=== PATIENT | female | born 1985 | race Caucasian/White ===

== ENCOUNTER 2022-05-04 22:11 | Emergency (ER) | payer SELFPAY ==
--- NOTE | 2022-05-04 22:14 | ERPHSYRPT ---
- History of Present Illness Time Seen by Provider: 05/04/22 22:14 Source: patient Exam Limitations: no limitations Physician History: This is a 36-year-old white female who injured her left foot and ankle yesterday approximately 1 PM when she slipped and rolled her left foot and ankle while getting out of her jeep. She slipped on loose gravel. Patient has been weightbearing but there is increased swelling and pain today. Method of Injury: twisted Occurred: yesterday Quality: constant, aching, throbbing Severity of Pain-Max: moderate Severity of Pain-Current: moderate Modifying Factors: Improves With: movement Associated Symptoms: other (Hurts to bear weight but can do so.) Allergies/Adverse Reactions: cetirizine [From Zyrtec] Adverse Reaction (Intermediate, Verified 05/04/22 22:30) Hives diphenhydramine [From Benadryl] Adverse Reaction (Intermediate, Verified 05/04/22 22:30) Hives loratadine [From Claritin] Adverse Reaction (Intermediate, Verified 05/04/22 22:30) Hives Home Medications: No Reportable Medications [No Reported Medications] 05/04/22 [History] Travel Risk - International Travel Have you traveled outside of the country in past 3 weeks: No - Coronavirus Screening Are you exhibiting any of the following symptoms?: No Close contact with a COVID-19 positive Pt in past 14-21 Days: No - Review of Systems Constitutional: No Symptoms Eyes: No Symptoms Ears, Nose, & Throat: No Symptoms Respiratory: No Symptoms Cardiac: No Symptoms Abdominal/Gastrointestinal: No Symptoms Genitourinary Symptoms: No Symptoms Musculoskeletal: Injury (Left foot and ankle) Skin: No Symptoms Neurological: No Symptoms Psychological: No Symptoms Endocrine: No Symptoms Hematologic/Lymphatic: No Symptoms Immunological/Allergic: No Symptoms All Other Systems: Reviewed and Negative - Past Medical History Pertinent Past Medical History: No - Past Surgical History Past Surgical History: No - Nursing Vital Signs Nursing Vital Signs: Initial Vital Signs Temperature 96.5 F 05/04/22 22:21 Pulse Rate 70 05/04/22 22:21 Respiratory Rate 18 05/04/22 22:21 Blood Pressure 128/59 05/04/22 22:21 O2 Sat by Pulse Oximetry 98 05/04/22 22:21 Pain Scale Pain Intensity 4 - Physical Exam General Appearance: no apparent distress, alert, anxiety, obese Eyes, Ears, Nose, Throat Exam: normal ENT inspection, moist mucous membranes Neck Exam: normal inspection, non-tender, supple, full range of motion Cardiovascular/Respiratory Exam: chest non-tender, no respiratory distress Gastrointestinal/Abdominal Exam: non-tender Back Exam: normal inspection, normal range of motion, No CVA tenderness, No vertebral tenderness Hips Exam: bilateral: non-tender, normal inspection, normal range of motion, no evidence of injury Legs Exam: bilateral leg: non-tender, normal inspection, normal range of motion, no evidence of injury Knees Exam: bilateral knee: non-tender, normal inspection, normal range of motion, no evidence of injury Ankle Exam: right ankle: non-tender, normal inspection, left ankle: soft tissue tenderness, swelling, bilateral ankle: normal range of motion Foot Exam: right foot: non-tender, normal inspection, no evidence of injury, left foot: soft tissue tenderness, swelling, bilateral foot: normal range of motion Neuro/Tendon Exam: normal sensation, normal motor functions, normal tendon functions, responds to pain, no evidence tendon injury Mental Status Exam: alert, oriented x 3, cooperative Skin Exam: normal color, warm, dry SpO2 Interpretation: normal O2 Delivery: Room Air - Course Nursing assessment & vital signs reviewed: Yes Ordered Tests: Medication Summary Discontinued Medications Generic Name Dose Route Start Last Admin Trade Name Clarissa PRN Reason Stop Dose Admin Hydrocodone Bitart/Acetaminophen 1 tab 05/04/22 22:45 05/04/22 22:52 Hydrocodone/Apap 5/325 Mg Tablet PO 05/04/22 22:46 1 tab STAT ONE Administration Hydrocodone Bitart/Acetaminophen 2 tab 05/04/22 22:46 05/04/22 22:52 Hydrocodone/Apap 5/325 Mg Tablet PO 05/04/22 22:47 2 tab SENT HOME W/ PATIENT ONE Administration Hydrocodone Bitart/Acetaminophen Confirm 05/04/22 22:50 Hydrocodone/Apap 5/325 Mg Tablet Administered 05/04/22 22:51 Dose 3 tab .ROUTE .STK-MED ONE Ibuprofen 600 mg 05/04/22 22:45 05/04/22 22:51 Ibuprofen 600 Mg Tablet PO 05/04/22 22:46 600 mg STAT ONE Administration Ibuprofen Confirm 05/04/22 22:50 Ibuprofen 600 Mg Tablet Administered 05/04/22 22:51 Dose 600 mg .ROUTE .STK-MED ONE - Progress Progress: unchanged, pain not gone completely Progress Note: 05/04/22 22:51 X-ray left ankle reveals no evidence of any acute fracture or dislocation. X- ray left foot reveals no evidence of any acute fracture or dislocation. Counseled pt/family regarding: diagnosis, need for follow-up, rad results - Departure Departure Disposition: Home Clinical Impression: Left ankle sprain, Sprain of left foot Condition: Stable Critical Care Time: No Referrals: DOCTOR,NO FAMILY [Primary Care Provider] - Follow up/PCP as directed Instructions: Ankle Sprain (DC) Additional Instructions: Ice pack to areas of tenderness 3 times a day for the next 48 hours. Use ibuprofen 600 mg orally with food 3 times a day for the next 5 days. Follow-up with [facility] orthopedic clinic for persistent symptoms. Another option would be to see automatic profile sander operator Dr. Freeman for persistent symptoms. Weightbearing as tolerated.
[2022-05-04 22:23] VITALS: O2SAT 98
[2022-05-04] MEDS ORDERED: NORCO 5/325 MG PO ONE ×2 (22:45→22:46)
[2022-05-04] MEDS ORDERED: MOTRIN 600 MG PO ONE (22:45)
[2022-05-04] MEDS ORDERED: NORCO 5/325 MG ONE (22:50)
[2022-05-04] MEDS ORDERED: MOTRIN 600 MG ONE (22:50)
[2022-05-04 23:19] VITALS: BP 112/75; PULSE 87
--- NOTE | 2022-05-05 08:50 | XRAY ---
Indication: Pain and swelling following injury. Comparison: None 3 view left ankle demonstrates mild medial soft tissue swelling and tiny posterior heel spur. No other bony, articular, or soft tissue abnormalities.
--- NOTE | 2022-05-05 08:51 | XRAY ---
Indication: Pain and swelling following injury. Comparison: None 3 nonweightbearing views left foot demonstrates tiny posterior heel spur. No other bony, articular, or soft tissue abnormalities.
== END 2022-05-04 23:19 | disposition home or self-care (01) ==
LOC: ED 22:11
DX: S93.402A Sprain of unspecified ligament of left ankle, initial encounter (principal); S93.602A Unspecified sprain of left foot, initial encounter; V48.4XXA Person boarding or alighting a car injured in noncollision transport accident, initial encounter; M25.572 Pain in left ankle and joints of left foot
CPT/HCPCS: 73610; 73630; 99284; A9270-GY

== ENCOUNTER 2022-09-11 21:25 | Emergency (ER) | payer MEDICAID ==
--- NOTE | 2022-09-11 22:41 | ERPHSYRPT ---
- History of Present Illness Source: patient Exam Limitations: other (Poor historian) Patient Subjective Stated Complaint: pt states that she has some swelling of face after cleaning out a storage unit, states she became stuffy in her sinuses and then her left side of her face swelled. states "this always happens with my dust allergies". Triage Nursing Assessment: pt is alert and oriented, no SOB no CP. breathing easy, vitals WNL, no pain Physician History: 37 yo wf w L facial edema edema since 1300 today. Pt has mild pain,mild pruritis, and nasal congestion. She denies fever/dental pain/dyspnea/dysphagia. Pt believes that she is having an allergic reaction to dust. Timing/Duration: abrupt onset (13:00 today) Severity: mild ENT Location: facial (L facial) Prearrival Treatment: no prearrival treatment Modifying Factors: Improves With: nothing Associated Symptoms: denies symptoms Allergies/Adverse Reactions: cetirizine [From Zyrtec] Adverse Reaction (Intermediate, Verified 05/04/22 22:30) Hives diphenhydramine [From Benadryl] Adverse Reaction (Intermediate, Verified 05/04/22 22:30) Hives loratadine [From Claritin] Adverse Reaction (Intermediate, Verified 05/04/22 22:30) Hives bupropion [From Wellbutrin] Adverse Reaction (Verified 09/11/22 21:35) Hx Tetanus, Diphtheria Vaccination/Date Given: Yes Hx Influenza Vaccination/Date Given: Yes Hx Pneumococcal Vaccination/Date Given: No Travel Risk - International Travel Have you traveled outside of the country in past 3 weeks: No - Coronavirus Screening Are you exhibiting any of the following symptoms?: No Close contact with a COVID-19 positive Pt in past 14-21 Days: No - Vaccine Status Have you recieved a Covid-19 vaccination: No - Review of Systems Constitutional: No Symptoms Ears, Nose, & Throat: No Symptoms, Nose Congestion Respiratory: No Symptoms Cardiac: No Symptoms Abdominal/Gastrointestinal: No Symptoms Genitourinary Symptoms: No Symptoms Musculoskeletal: No Symptoms Skin: No Symptoms Neurological: No Symptoms Psychological: No Symptoms Endocrine: No Symptoms Hematologic/Lymphatic: No Symptoms Immunological/Allergic: No Symptoms - Past Medical History Pertinent Past Medical History: No Neurological History: No Pertinent History ENT History: No Pertinent History Cardiac History: No Pertinent History Respiratory History: No Pertinent History Endocrine Medical History: Hypoglycemia Musculoskeletal History: No Pertinent History GI Medical History: Gallbladder Disease History: No Pertinent History Psycho-Social History: Depression Female Reproductive Disorders: No Pertinent History - Past Surgical History Past Surgical History: No Neuro Surgical History: No Pertinent History Cardiac: No Pertinent History Respiratory: No Pertinent History Gastrointestinal: Cholecystectomy Genitourinary: No Pertinent History Musculoskeletal: Orthopedic Surgery Female Surgical History: Dilation & Curettage, Section - Social History Smoking Status: Never smoker Exposure to second hand smoke: Yes Drug Use: none Patient Lives Alone: No Significant Family History: no pertinent family hx - Female History Hx Last Menstrual Period: 08/29/22 Hx Now: No - Nursing Vital Signs Nursing Vital Signs: Initial Vital Signs Temperature 97.1 F 09/11/22 21:28 Pain Scale Pain Intensity 0 WNL - Physical Exam General Appearance: no apparent distress (Mild L facial edema and mild TTP) Eye Exam: bilateral eye: normal inspection, PERRL, EOMI Ear Exam: bilateral ear: auricle normal, canal normal, TM normal Nasal Exam: normal inspection Throat Exam: normal, pharynx normal, No dental tenderness Neck Exam: normal inspection, non-tender, supple, full range of motion, trachea midline, No JVD, No limited range of motion Cardiovascular/Respiratory Exam: normal breath sounds, regular rate/rhythm, heart sounds normal Neurologic Exam: alert, oriented x 3, cooperative, 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, normal mood/affect, nml cerebellar function, nml station & gait, sensation nml, No motor deficits, No sensory deficit Skin Exam: normal color, warm, dry, No rash - CT Exams Maxillofacial Bones CT Interpretation: Tele-radiologist Report (Periapical disease involving the L maxillary incisor w possible erosion through the anterior cortex w L facial/pre- maxillary phlegmon) Ordered Tests: Active Orders 24 hr Category Date Time Status SINUSES WITHOUT CONTRAST [CT] Stat Exams 09/11/22 21:53 Taken Medication Summary Discontinued Medications Generic Name Dose Route Start Last Admin Trade Name Freq PRN Reason Stop Dose Admin Ketorolac Tromethamine 15 mg 09/11/22 23:36 09/11/22 23:40 Ketorolac Tromethamine 30 Mg/Ml Inj IM 09/11/22 23:37 15 mg STAT ONE Administration Ketorolac Tromethamine Confirm 09/11/22 23:38 Ketorolac Tromethamine 30 Mg/Ml Inj Administered 09/11/22 23:39 Dose 30 mg .ROUTE .STK-MED ONE Penicillin V Potassium 500 mg 09/11/22 23:36 09/11/22 23:40 Penicillin V Potassium 250 Mg Tablet PO 09/11/22 23:37 500 mg STAT ONE Administration Penicillin V Potassium Confirm 09/11/22 23:38 Penicillin V Potassium 250 Mg Tablet Administered 09/11/22 23:39 Dose 500 mg .ROUTE .STK-MED ONE - Progress Progress: improved Progress Note: 09/11/22 23:37 15mg IM Toradol PenV 500mg po Counseled pt/family regarding: diagnosis, need for follow-up, rad results - Departure Departure Disposition: Home Clinical Impression: Dental abscess Condition: Stable Critical Care Time: No Referrals: DOCTOR,NO FAMILY [Primary Care Provider] - Follow up/PCP as directed Instructions: Tooth Abscess (DC), Dental Pain (DC) Additional Instructions: Dentist FRANCISCO Start Penicillin three times a day Toradol as needed for pain Return to ER for increasing pain, temperature greater than 100.5, or increasing swelling Prescriptions: Penicillin V Potassium 500 mg PO TID 7 Days #21 tablet Ketorolac Trometh 10 mg Tab [TORAdol 10 MG TABLET] 10 mg PO TID PRN #10 tablet PRN Reason: Pain
[2022-09-11 23:06] VITALS: BP 111/68; PULSE 78; O2SAT 98
[2022-09-11] MEDS ORDERED: TORAdol 30 mg Injection IM ONE (23:36)
[2022-09-11] MEDS ORDERED: PENICILLIN V POTASSIUM PO ONE (23:36)
[2022-09-11] MEDS ORDERED: TORAdol 30 mg Injection ONE (23:38)
[2022-09-11] MEDS ORDERED: PENICILLIN V POTASSIUM ONE (23:38)
--- NOTE | 2022-09-12 07:05 | XRAY ---
Indication: Left facial edema. Multiple contiguous axial images obtained through the paranasal sinuses. Sagittal and coronal reformatted images obtained. Comparison: None Paranasal sinuses, ostiomeatal units, and nasal passages are clear. Incidental right middle turbinate love bullosa. Multiple dental caries. No acute fracture, suspicious bony lesions, or osseous destructive process. There is mild left mandible and left facial subcutaneous induration presumed inflammatory/infectious. No suspicious fluid or air collection. Prominent left cervical lymph nodes, largest 1.4 x 1.1 cm presumed reactive. Remaining visualized soft tissues including orbits and base of the brain are unremarkable. Impression: 1. Left facial and left mandible cellulitis. No walled off fluid collection/abscess. 2. Left cervical adenopathy presumed reactive. 3. Remaining CT sinuses negative. Comment: Preliminary interpretation made by [facility]. No critical discrepancy.
== END 2022-09-11 23:50 | disposition home or self-care (01) ==
LOC: ED 21:25
DX: K04.7 Periapical abscess without sinus (principal); R09.81 Nasal congestion; Z20.828 Contact with and (suspected) exposure to other viral communicable diseases
CPT/HCPCS: 70486; 96372; 99283; J1885; A9270-GY